=== PATIENT | male | born 1935 | race Caucasian/White ===

== ENCOUNTER 2021-12-07 11:07 | Observation (INO) | payer MEDICARE, OTHER ==
[~2021-12-07] VITALS: Ht 180.3 cm; Wt 70.0 kg
--- NOTE | 2021-12-07 18:00 | NUR ---
ADMISSION ASSESSMENT COMPLETE - PT RESTING IN BED WITH DAUGHTER AT BEDSIDE. PT ON 3l NC SP02 100%. DENIES SOB OR DIZZINESS. BM PRODUCED UPON ARRIVING TO FLOOR. PT AMBULATED TO BATHROOM WITH NC IN PLACE WITH 1 PERSON ASSIST. PT DENIES DINNER AT THIS TIME. CALL LIGHT IN HAND.
--- NOTE | 2021-12-07 18:27 | NUR ---
RN ROUNDING ON PT - ASLEEP IN BED, WAKES WITH VOICE AND TOUCH. PT TOLERATED ORAL KAYEXELATE WITHOUT DIFFICULTY. DENIES FURTHER NEEDS AT THIS TIME. CALL LIGHT IN REACH.
--- NOTE | 2021-12-07 19:44 | NUR ---
TELE#10 RHYTHM V BIGEMINY, DENIES CP. ON O2 2LNC, HAD JUST GOT UP TO BR, BACK TO BED, DENIES SOB WITH EXERTION. DR CARABALLO NOTIFIED OF ABOVE SX. NO ORDER AT THIS TIME
--- NOTE | 2021-12-07 19:57 | NUR ---
PT IN BED, DENIES CP. SOB OR LIGHTHEADNESS, TELE#[address], Svitlana HERNANDEZ. O2 CHRONIC 2LNC, SATS 100%, INDEPENDENT IN ROOM TO 1PA. PLEASANT AND COOP. ALERT AND ORIENTED. LFA PATENT
--- NOTE | 2021-12-07 23:16 | NUR ---
TELE#10, CONT ON VBIGEMINI RHTYTHM, DENIES CP OR SOB. TURNS AND REPOSITIONS SEFL IN BED, LAB HERE EARLIER TO DRAW K LEVEL. PT IN BED CALL STELLATH AT HANDSA REACH, O2 2LNC
--- NOTE | 2021-12-07 23:45 | NUR ---
IN TO ASSIST PT WITH TOILETING, SBA, BACK TO BED, ASSISTED PT WITH TV OFF, BED ALARM ACTIVE, WARM BLANKET PROVIDED, NO FURTHER NEEDS AT THIS TIME
--- NOTE | 2021-12-08 00:03 | NUR ---
DR CARABALLO REVIEWED PT LABS, DC'D TEL.
--- NOTE | 2021-12-08 00:11 | NUR ---
AWAKES EASILY, TELE DC'D PER DR MONTEZ ORDRS. K LEVELS RESULTS BACK 5.1. PT DENIES CP OR SOB.
--- NOTE | 2021-12-08 02:50 | NUR ---
PT CALLED FOR WARM BLANKETS, ASSISTED UP TO THE TOILET WITH WALKER, BACK TO BED, VS TAKEN
--- NOTE | 2021-12-08 02:53 | NUR ---
IN TO PROVIDE PT WARM BLANKET
--- NOTE | 2021-12-08 03:32 | NUR ---
PT UP TO BR, VOIDED, PASSED LARGE AMOUNT OF GAS, SMALL HARD BM , TOOK O2 OFF WHEN UP TO BR, DESATTED TO 82%, BACK ON 2LNC, WENT UP TO 92%. BACK TO BED, DENIES C/O CP OR SOB, TOLERATED WELL. 1PA/HOME FWW, COOPERATIVE, BED ALRM ON FALL PRECAUTIONS, LIQUIDS AT BEDSIDE, NO EMESIS.
--- NOTE | 2021-12-08 06:50 | NUR ---
IN TO GET LAST SET OF VITALS, PT UP TO THE TOILE, VOID AND BM, BACK TO BED, ICE WATER AND COFFEE PROVIDED
--- NOTE | 2021-12-08 06:55 | NUR ---
Pt awakes easily on 2L O2 chronic, Irregular rhythm, no c/o cp or sob. ambulated to br w minimum of assist and home fww. back to bed, tolerated well.
--- NOTE | 2021-12-08 08:25 | NUR ---
patient sitting up in the bed eating breakfast. the patient states he doesn't want to get to the chair. call light with in reach. no further needs at this time.
--- NOTE | 2021-12-08 10:11 | NUR ---
Patient awake in bed, no distress noted. Patient reports he slept well last night. No pain reported at this time. Pt remains on 2L oxygen per nc, respirations non labored. Family at bedside visiting with pt. No needs, personal supplies and call light within reach.
--- NOTE | 2021-12-08 11:14 | NUR ---
Patient up to restroom to void at this time. Patient tolerated ambulation well using home walker. Family remains at bedside visiting. No needs, personal supplies and call light within reach.
[2021-12-08] MEDS ORDERED: LOVASTATIN20 MG PO (13:00)
[2021-12-08] MEDS ORDERED: ASPIRIN81 MG PO (13:01)
[2021-12-08] MEDS ORDERED: AMILORIDE HCL5 MG PO (13:03)
[2021-12-08] MEDS ORDERED: POLYMYXIN B TOP (13:07)
[2021-12-08] MEDS ORDERED: BACITRACIN TOP (13:07)
[2021-12-08] MEDS ORDERED: MONTELUKAST SOD10 MG PO (13:08)
[2021-12-08] MEDS ORDERED: METOPROLOL TART25 MG PO (13:08)
[2021-12-08] MEDS ORDERED: OMEPRAZOLE40 MG PO (13:10)
[2021-12-08] MEDS ORDERED: BICALUTAMIDE50 MG PO (13:15)
[2021-12-08] MEDS ORDERED: DOXAZOSIN MESYLA2 MG PO (13:19)
[2021-12-08] MEDS ORDERED: LEVOTHYROXINE75 MCG PO (13:19)
[2021-12-08] MEDS ORDERED: MELOXICAM15 MG PO (13:20)
[2021-12-08] MEDS ORDERED: VITAMIN C500 M4 PO (13:22)
[2021-12-08] MEDS ORDERED: FIBER LAXATIVE625 MG PO (13:23)
[2021-12-08] MEDS ORDERED: IPRAT-ALBUT 0.5-3 ML INH (13:25)
[2021-12-08] MEDS ORDERED: FERROUS SULFAT325 M2 PO (13:26)
[2021-12-08] MEDS ORDERED: [UNRECOGNIZED DRUG - OTHER] PO (13:28)
[2021-12-08] MEDS ORDERED: MIRALAX17 GM PO (13:31)
[2021-12-08] MEDS ORDERED: VENTOLIN HFA18 GM INH (13:32)
[2021-12-08] MEDS ORDERED: IMODIUM A-D2 M2 PO (13:33)
[2021-12-08] MEDS ORDERED: MILK OF MA2400 MG/10 PO (13:35)
[2021-12-08] MEDS ORDERED: ULTRAM50 MG PO (13:36)
[2021-12-08] MEDS ORDERED: ONDANSETRON ODT4 MG PO (13:36)
[2021-12-08] MEDS ORDERED: ACETAMINOPHEN325 M1 PO (13:37)
[2021-12-08] MEDS ORDERED: SENNA8.6 MG PO (13:38)
[2021-12-08] MEDS ORDERED: TRIAMCINOLONE A15 G3 TOP (13:39)
--- NOTE | 2021-12-10 12:55 | EKG ---
[facility] [address] [place] [address] Signed Normal sinus rhythm Minimal voltage criteria for LVH, may be normal variant ( [place] product ) Anterior infarct , age undetermined Abnormal ECG No previous ECGs available Confirmed by YURI CARABALLO MD ([id number]) on 12/10/2021 12:54:59 PM Electronically Signed By: YURI CARABALLO MD 12/10/21 1255 PATIENT NAME: RADHA JEFFRIES Electrocardiogram DATE OF : 33 PHYSICIAN: YURI CARABALLO MD REPORT #: [id number] REPORT IS CONFIDENTIAL AND NOT TO BE RELEASED WITHOUT AUTHORIZATION
[2021-12-27] MEDS ORDERED: TRAZODONE HCL100 MG PO (13:12)
== END 2021-12-08 14:05 | disposition home or self-care (01) ==
LOC: ED 11:07 → MS 11:09
PROVIDERS: ADMIT Internal Medicine; ATTEND Internal Medicine
DX: E87.5 Hyperkalemia (principal); T50.2X5A Adverse effect of carbonic-anhydrase inhibitors, benzothiadiazides and other diuretics, initial encounter; D64.9 Anemia, unspecified; K52.9 Noninfective gastroenteritis and colitis, unspecified; I11.0 Hypertensive heart disease with heart failure; I50.32 Chronic diastolic (congestive) heart failure; C61 Malignant neoplasm of prostate; K59.09 Other constipation; E78.5 Hyperlipidemia, unspecified; E03.9 Hypothyroidism, unspecified; J96.11 Chronic respiratory failure with hypoxia; Z88.8 Allergy status to other drugs, medicaments and biological substances; Z95.1 Presence of aortocoronary bypass graft; Z79.01 Long term (current) use of anticoagulants; Z95.2 Presence of prosthetic heart valve; Z88.5 Allergy status to narcotic agent; Z20.822 Contact with and (suspected) exposure to COVID-19; M25.50 Pain in unspecified joint
CPT/HCPCS: 36415; 71045; 80053; 81001; 83880; 84132; 84484; 85025; 86850; 86900; 86901; 87502; 93005; 93010; 94640; 94760; 96374; 99285-25; C9803; G0378; J1940; U0003

== ENCOUNTER 2022-01-01 12:32 | Inpatient (IN) | payer MEDICARE, OTHER ==
[~2022-01-01] VITALS: Ht 180.3 cm; Wt 68.9 kg
[~2022-01-01 12:32] MED LIST: ACETAMINOPHEN325 M1 PO; AMILORIDE HCL5 MG PO; ASPIRIN81 MG PO; BACITRACIN TOP; BICALUTAMIDE50 MG PO; DOXAZOSIN MESYLA2 MG PO; FERROUS SULFAT325 M2 PO; FIBER LAXATIVE625 MG PO; IMODIUM A-D2 M2 PO; IPRAT-ALBUT 0.5-3 ML INH; LEVOTHYROXINE75 MCG PO; LOVASTATIN20 MG PO; MELOXICAM15 MG PO; METOPROLOL TART25 MG PO; MILK OF MA2400 MG/10 PO; MIRALAX17 GM PO; MONTELUKAST SOD10 MG PO; OMEPRAZOLE40 MG PO; ONDANSETRON ODT4 MG PO; POLYMYXIN B TOP; SENNA8.6 MG PO; TRAZODONE HCL100 MG PO; TRIAMCINOLONE A15 G3 TOP; ULTRAM50 MG PO; VENTOLIN HFA18 GM INH; VITAMIN C500 M4 PO; [UNRECOGNIZED DRUG - OTHER] PO
--- OUTSIDE RECORDS SUMMARY | 2022-01-01 12:40 | XMS ---
PreManage Notification: RADHA JEFFRIES Security Overnight Stocker Events No recent Security Events currently on file CRITERIA MET - [facility] - 2 Visits in 30 Days - [facility] - 3 Facilities in 90 Days CARE PROVIDERS Jenifer Brock Security Operations Specialist/Zone Maintenance Technician 09/11/2021-Current PHONE: [phone] Zeenat Murillo Nurse Practitioner: Family Current PRODUCT SUPPORT MANAGER PHONE: Unknown Wong has no Care Guidelines for this patient. E.D. VISIT COUNT (12 MO.) [address] [place] [address] TOTAL 4 NOTE: Visits indicate total known visits. ED/UCC VISIT TRACKING (12 MO.) 01/01/2022 12:33 [facility] [place] TYPE: Emergency COMPLAINT: - HEART PROBLEM, DIFFICULTY BREATHING 12/30/2021 17:52 [facility] [place] TYPE: Emergency DIAGNOSES: - Generalized edema - Generalized abdominal pain - Other ascites - ABD PAIN 12/23/2021 11:30 [facility] TYPE: Emergency DIAGNOSES: - Abdominal Pain - Generalized abdominal pain - Residual hemorrhoidal skin tags 12/07/2021 11:08 [facility] TYPE: Emergency COMPLAINT: - MULTIPLE COMPLAINTS INPATIENT VISIT TRACKING (12 MO.) 12/07/2021 11:09 [facility] [place] TYPE: Observation COMPLAINT: - HYPERKALEMIA DIAGNOSES: - Allergy status to other drugs, medicaments and biological substances - Allergy status to narcotic agent - Pain in unspecified joint - Hyperkalemia - Chronic diastolic (congestive) heart failure - Weakness - Malignant neoplasm of prostate - Anemia, unspecified - Hypothyroidism, unspecified - Noninfective gastroenteritis and colitis, unspecified - Other constipation - Hyperlipidemia, unspecified - Presence of prosthetic heart valve - Contact with and (suspected) exposure to COVID-19 - Hypertensive heart disease with heart failure - Adverse effect of carbonic-anhydrase inhibitors, benzothiadiazides and other diuretics, initial encounter - [facility] (current) use of anticoagulants - Chronic respiratory failure with hypoxia - Presence of aortocoronary bypass graft [email or web address]
[2022-01-01] MEDS ORDERED: TORSEMIDE20 MG PO (13:11)
--- NOTE | 2022-01-01 16:12 | NUR ---
PT TO FLOOR WITH ARNOLD BULLOCK. 2 DTRS ALSO WITH HIM. PT ASSISTED TO BED ON DRAW SHEET. PT HAS WARM PACK IN PLACE FOR CHRONIC NECK PAIN. WEIGHED ON BED AND DTR STATES HE NORMALLY WEIGHS APPROX 20LBS LESS. KATIA WITH ECHO IN ROOM. ADMINISTERED LASIX.
--- NOTE | 2022-01-01 16:41 | NUR ---
ASSISTED PT TO RESTROOM WITH FWW. DID WELL BUT SOB WITH AMBULATION. PT THEN SPOKE ON PHONE WITH SON. ADMINISTERED TYLENOL FOR NECK PAIN THAT HE RATES 9/10.
--- NOTE | 2022-01-01 17:59 | NUR ---
Spoke with Rn, Melina, from [facility]. Pt has been living there with his for the last year and a half. Pt uses a walker and 02 at 2 L. In the last 2 weeks he has required a wc. Pt has been declining over the last few weeks and is sob. He has not been able to lie down. He assists his at the [facility]. Daughters are involved and assist pt and . Per Melina pt may return when he is at baseline [facility]. Plan for pt to return to [facility] when medically cleared.
--- NOTE | 2022-01-01 20:40 | EKG ---
[facility] [address] [facility] [place] [address] Signed Sinus rhythm with premature supraventricular complexes Rightward axis Borderline ECG No previous ECGs available Confirmed by YURI CARABALLO MD ([id number]) on 01/01/2022 8:40:36 PM Electronically Signed By: YURI CARABALLO MD 01/01/222039 PATIENT NAME: RADHA JEFFRIES Electrocardiogram DATE OF : 33 PHYSICIAN: YURI CARABALLO MD REPORT #: [id number] REPORT IS CONFIDENTIAL AND NOT TO BE RELEASED WITHOUT AUTHORIZATION
--- NOTE | 2022-01-01 21:28 | NUR ---
pt alert and oriented. on 2L NC. lungs with crackles coarser onthe L than Right, no cough. sl Lhand, patent, received Lasix IV. pt coop with assessment. trace of edema to ankles. tolerating flui restriction at this time. teaching reinforced. coop. using urinal, sob with exertion noted. call light at handsa reach. Bed alarm on
--- NOTE | 2022-01-01 23:25 | NUR ---
PT BEING REPOSITINED IN BED BY MOTORBIKE COURIER, O2 2L NC, C/O UNABLE TO BREATH, REPOSITIONED IN BED, SPOT SAT CHECKS 90-92% LUNGS WITH CRACKLES AT LEFT BASE. NO COUGH NOTED AT THIST NIKA, ALERT AND ORIENTED. RT TO BE NOTIFIED FOR TX
--- NOTE | 2022-01-01 23:49 | NUR ---
DR CARABALLO CALLED THIS UNIT VIA PHONE, 'KEEP PTS HOB ELEVATED TO 45o TO HELP WITH BREATHING IF NOT WORKING THEN DO VAPOTHER MY CONVERSATION WITH RT". HOB ELEVATED TO 45o, PROCEDURE EXPLAINED TO PT, ITS STILL NOT GOING TO HELP ME BREATH BETTER. SINCE MY HEAD IS UP LIKE IN A CHAIR, WHY DONT YOU LOWER MY LEGS FLAT TOO", EXPLAINED TO HIM ABOUT KEEPING LEGS ELEVATED TOO. SPOT CHECKS 92%, LUNGS NO CHANGES FROM EARLIER.
--- NOTE | 2022-01-02 00:28 | NUR ---
pT ON 2LNC, SATS 98%, LUNGS W CRACKLES T/O. HOB ELEVATED TO 45o, legs elevated, "i still think im sob, not as bed as earlier but still a little". will notify RT
--- NOTE | 2022-01-02 01:01 | NUR ---
resting, O2 2LNC, hob 45o, cpox on 97% P60, R 16, no s/sx distress at this time, eyes closed, bed alarm on
--- NOTE | 2022-01-02 02:16 | NUR ---
uses call light, on 2L O2 with humidifier, HOB elevated to 45o, sats 100%, resp 18, lungs with crackles at bases, no further c/o Inability to breathe. SOB noted with exertion when he was using urinal and moving in bed, sats 97% and resp 22 at that time. recuperates easily. repositioned in bed, sl patent.
--- NOTE | 2022-01-02 03:35 | NUR ---
spot check o2 sats 2LNC 98%, resp 16, fixated on and continues to ask for wate, pt instructed on fluid restriction, pt unable to comprehend fluid restriction. oral care swabs at bedside. reassured, cont to reinforce fluid restriction
--- NOTE | 2022-01-02 04:04 | NUR ---
turned light, continue to be unable to process information r/t fluid restriction, reoriented. not satisfied, cont to reinofrce teaching r/t fluids restrictions
--- NOTE | 2022-01-02 05:27 | NUR ---
PT ON 2LNC, LUNGS CRACKLES T/O AT BEGINING OF SHIFT, DRY COUGH NOTED OFF AND ON. PT AWAKE MOS OF THIS SHIFT, PLEASANT, FORGETFUL AND COOPERATIVE. uP TO BR AT BEGINIG OF SHIFT, VOIDED, BACK TO BEDN INCREASED SOB WITH EXERTION NOTED, O2 WAS INCREASED TO 4L FOR A FEW MINUTES, BACK TO 2L. RECEIVED LASIX IV, EFFECTIVE. VOIDING QS, USES URINAL AND HAS BEEN INCONTINENT OF URINE. ATTENDS IN PLACE. PT C/O UNABLE TO BREATHE AT BEGINING OF SHIFT. SATS 90-91%, RESP 24, NEB TX DONE. RT NOTIFIED AND AFTER DOING HIS ASSESSMENT HE CALLED DR CARABALLO, NEW ORDERS FOR KEEPING PT UP IN 45o angle and if not improving start vapotherm as per RT instructions. pt tolerating being sitting up in 45o angle, lungs improved, STILL CRACKLES AT BASES, NO COUGH. SATS 96-100% SEVERAL TIMES AND SPOT CHECKS DONE OFTEN.PT ON 1600 FLUIDS RESTRICTION. PT HAVING A HARD TIME REMEMBERING AND GOT UPSET SEVERAL TIMES WHEN INSTRUCTED ON 1600CC FLUID RESTRICTION AND REASONING. UNABLE TO COMPREHEND CONT TO REQUIRE FREQUENT TEACHING.. BED ALARM ON, COANT TO REINFORCE FALL/O2 PRECAUTIONS BED ALARM ONWILL DO DAILY STANDING WEIGHT. S
--- NOTE | 2022-01-02 07:34 | NUR ---
REPORT RECEIVED FROM NIGHT RN - RESTING IN BED AWAKE, REQUESTING WATER TO DRINK, UNCOMFORTABLE WITH FLUID RESTRICTION. EDUCATION REINFORCED ON CHF/FLUIDS. CALL LIGHT IN REACH.
[2022-01-02] MEDS ORDERED: METOCLOPRAMIDE H5 MG PO (07:35)
[2022-01-02] MEDS ORDERED: MEGESTROL400 MG/10 PO (07:36)
[2022-01-02] MEDS ORDERED: DOXAZOSIN MESYLA2 MG PO (07:36)
[2022-01-02] MEDS ORDERED: MELOXICAM15 MG PO (07:37)
[2022-01-02] MEDS ORDERED: AMILORIDE HCL5 MG PO (07:38)
--- NOTE | 2022-01-02 08:49 | NUR ---
RN IN ROOM TO ADMINISTER SCHEDULED MEDICATIONS - FAMILY IN ROOM VISITING. PT UP TO CHAIR FOR BREAKFAST. SP02 STABLE ON 2L VIA NC. PT STATES SOB HAS IMPROVED, STILL NOTED DYSPNEA ON EXCERTION USING URINAL OR TRANSFERING TO CHAIR.
--- NOTE | 2022-01-02 09:23 | NUR ---
RN IN ROOM TO ASSESS PT - PT ASSISTED BACK TO CHAIR FROM BATHROOM, DYSPNEA WITH EXCERTION MODERATE/SEVERE - RATE 30 WITH BELLY BREATHING, 2L NC IN PLACE, ENCOURAGE PT TO TAKE BREATH THROUGH NOSE WHEN RECOVERING. DENIES DIZZINESS WITH THIS. FAMILY STILL AT BEDSIDE. PT DENIES FURTHER NEEDS AT THIS TIME.
[2022-01-02] MEDS ORDERED: DICYCLOMINE HCL10 MG PO (09:55)
[2022-01-02] MEDS ORDERED: MIRALAX119 GM PO (09:59)
[2022-01-02] MEDS ORDERED: PEPTO-BISM262 MG/15 PO (10:00)
[2022-01-02] MEDS ORDERED: PREPARATION H1 EAC3 PR (10:02)
--- NOTE | 2022-01-02 11:13 | NUR ---
RN ROUNDING ON PT - PT RESTING IN BED WITH HOB 45 DEGREES. IV SITE WNL, TOLERATES IV LASIX WITHOUT DIFFICULTY. FAMILY PROVIDED WATER TO DRINK. OT IN ROOM WORKING WITH PT. WARM BLANKETS PROVIDED.
--- NOTE | 2022-01-02 12:21 | NUR ---
RN ROUNDING ON PT - ASSISTED UP IN BED AND PLACED IN CHAIR POSISTION TO ASSIST FEELING OF SOB. SPO2 STABLE ON 2L DESPITE FEELING SOB. LUNCH TRAY PROVIDED, DENIES FURTHER NEEDS AT THIS TIME. CALL LIGHT AND FAMILY IN ROOM.
--- NOTE | 2022-01-02 12:59 | NUR ---
PT USES CALL LIGHT TO REQUEST HELP REPOSISTIONING - PT C/O SOB. RATE INCREASING FROM PREVIOUS ASSESSMENTS, SP02 >94% ON 2l. CRACKLES THROUGHOUT NOTED IN LUNG SOUNDS, WORSENING FROM 4 HOURS AGO. SCHEDULED NEB TX COMPLETED EARLIER. PT PLACED IN TRIPOD POSITION WITH BED SIDE TABLE, STATES COMFORTABLE. FAMILY AND CALL LIGHT IN REACH. CURTAIN TO NURSES STATION OPEN.
--- NOTE | 2022-01-02 13:40 | NUR ---
PRN NEB TX PROVIDED FOR SOB. SP02 CONTINUES TO REMAIN STABLE ON 2L. REPOSISTIONED WELL. WILL CONTINUE TO ASSESS.
--- NOTE | 2022-01-02 14:13 | NUR ---
PT REPOSISTIONED TO CHAIR TO ASSIST WITH SOB - NEB TX HELPED SLIGHTLY. CONTINUES TO HAVE STABLE SPO2 WITH 2L. CRACKLES THROUGHOUT WITH 2+ BLE EDEMA. FAMILY AT BEDSIDE. SPOKE WITH DAUGHTER ON PHONE FOR UPDATE. FAMILY ANXIOUS FOR MD TO ROUND.
--- NOTE | 2022-01-02 15:07 | NUR ---
RN IN ROOM TO REPOSISTION PT AND ADMINISTER IV LASIX. PT CONTINUES TO C/O SOB, IMPROVES WITH UPRIGHT POSISTION HOWEVER PT IS FREQUENTLY WANTING TO CHANGE POSISTIONS. FAMILY AT BEDSIDE. CALL LIGHT IN REACH.
--- NOTE | 2022-01-02 16:40 | NUR ---
RN IN ROOM TO ROUND WITH MD - PT STATES UNDERSTANDING ON PLAN OF CARE TO CONTINUE DIURESIS , WELL FAMILY. PT REPOSISTIONED IN BED WITH HOB >45. REMAINS ON 2L NC. PT ABLE TO USE URINAL WITH ASSISTANCE.
--- NOTE | 2022-01-02 16:58 | NUR ---
Spoke with pt. States he might be slightly better. Denies needs.
--- NOTE | 2022-01-02 18:20 | NUR ---
RN IN ROOM TO ADMINISTER SCHEDULED MEDICATIONS - PT BACK TO BED FROM BATHROOM USING FWW. SMALL BM PRODUCED WITH UNMEASURED URINE VOID. STEADY ON FEET, MILD WEAKNESS FROM BASELINE, DYSPNIC WITH EXCERTION. PT SAT IN CHAIR POSISTION IN BED FOR OPTIMAL BREATHING EFFORT. EDUCATION CONTINUED TO BE REINFOCED ABOUT LAYING DOWN. 2L NC IN PLACE. IV SITE TOLERATING MAG INFUSION WITH SOME PAIN, IV PATENT AND VERIFIED WITH CARE TRANSPORT NURSE - RATE SLOWED AND WARM PACK APPLIED. CALL LIGHT AND TABLE WITHIN REACH.
--- NOTE | 2022-01-02 20:02 | NUR ---
Pt in bed, hob elevated to 45o, O2 2LNC w humidifier. crackly lung sounds, pt helped reposition in bed, sats 97% at that time. tacheipneic but did not desatted when repositioning. cooperative, RT in room to do tx. mag rider completed
--- NOTE | 2022-01-02 20:40 | NUR ---
pt voided uses urinal, took meds and Melatonin given per insomnia and Tylenol per neck and back pain. O2 2 LNC. hob elevated to 45o, rt gave neb tx a few minutes ago
--- NOTE | 2022-01-02 23:46 | NUR ---
alarm going off, sitting edge of bed, voided clear urine. repositioned back in to bed. "that sleeping pill is not working" staed, warm blanket given on request. O2 2LNC, bed alrm on.
--- NOTE | 2022-01-03 00:20 | NUR ---
IN TO ASSIST PT UP TO THE TOILET, SBA FWW, VOID AND BM, BACK TO BED BED ALARM IN PLACE
--- NOTE | 2022-01-03 00:58 | NUR ---
hob elevated on 2LNC, eyes closed, no distress, bed alarm on. cont on fluid restriction
--- NOTE | 2022-01-03 02:12 | NUR ---
using call light, coop with assessment. awake, O2 2LNC, lung w crackles t/o slight sob with exertion noted when repositioned in bed. using urinal, no c/o pain or concerns about fluid restriction.
--- NOTE | 2022-01-03 03:10 | NUR ---
IN TO RN TO BOOST PT AND HOB PLACED AT 45 ANGLE, PT FEELS BETTER NOW
--- NOTE | 2022-01-03 03:20 | NUR ---
PT CALLED, PT FEELS LIKE HIS REAR IS SORE, PILLOW ADDED TO THE RIGHT HIP, ENCURAGED PT TO TRY THIS AND CALL BACK IF NOT WORKING, PT ARGREEABLE TO PLACE, BED ALARM REMAINS IN PLACE
--- NOTE | 2022-01-03 03:45 | NUR ---
IN TO ASSIST PT TO THE TOILET, 1PA FWW, VOID AND BM, D.WT TAKEN AT THIS TIME, BACK TO BED, NO FURTHER NEEDS AT THIS TIME
--- NOTE | 2022-01-03 04:03 | NUR ---
UP TO BR 1PA/FWW A FEW MINUTES AGO, UNSTEADY ONCE HE GOT TO TOILET, BACK TO BED. DAILY WEIGHT STANDING SCALE 70.4KG. BACK TO BED, TOLERATED MUCH BETTER,O2 2LNC IN PLACE, HOB 45o, crackles present, but tolerating walking much better
--- NOTE | 2022-01-03 04:45 | NUR ---
PT AWAKE, IN TO GET VITALS, NO FURTHER NEEDS AT THIS TIME
--- NOTE | 2022-01-03 04:52 | NUR ---
Pt on 2L NC. lungs with crackles, no cough today. sob with exertion, ambulated to br, unsteady 1pa/fww. was medicated x1 with Tylenol per back and neck pain effective. medicated with Melatonin per insomnia, not effective. Pt has not slept. c/o SOB at times, repositioned back to HOB elevation 45o as per orders and feels much relieved, no changes to lungs from earlier on shift. Irritable off and on over fluid restriction. daily stand weight 70.4KG. follows instructions. repositioned many times and voiding small amount using urinal many times. uses call light.
--- NOTE | 2022-01-03 05:20 | NUR ---
DROWSY AWAKES EASILY, MEDICATED WITH TYLENOL 500 C/O BACK AND NECK PAIN, REPOSITIONED IN BED, [address] LAB IN ROOM
--- NOTE | 2022-01-03 05:52 | NUR ---
awake, uses call light, warm blanket given on request. c/o unable to breathe. sats 90% on 2LNC, scrunched down in bed, repositioned. HOB elevated to 45o sats up to 96%, lungs w no changes from earlier assessment, crackles t/o RT notified of pt wanting a neb tx.
--- NOTE | 2022-01-03 07:43 | NUR ---
REPORT RECEIVED FROM NIGHT RN - PT AWAKE IN BED WITH PRODUCTIVE COUGH, REPOSISTIONED HIGHER IN BED, PT STATES HIS "BOTTOM IS GETTING SORE" - VISUALLY INSPECTED AND NO BREAKDOWN NOTED. PT HAS CALL LIGHT IN HAND, NC IN PLACE.
--- NOTE | 2022-01-03 09:49 | NUR ---
RN IN ROOM TO ASSESS PT - PT ANXIOUS THIS AM AND USING CALL LIGHT FREQUENTLY TO REPORT SOB. PT REPOSISTIONED INTO CHAIR AND FLOATED ON PILLOWS TO RELEIVE PRESSURE PT COMPLAINS OF ON COCCYX. CRACKLES THROUGHOUT LUNG ROUSE, SP02 STABLE ON 2L NC. IV LASIX AM DOSE GIVEN. PT NOTED TO HAVE IRREGULAR HR THIS AM - BOTH BY AUSCULTATION AND PALPATION RADIALLY. HOUSE REGISTRY RN NOTIFIED TO REPORT AT AM MEETING. CHART REVIEWED AND NO HX OF AFIB OR IRREGULAR RATE NOTED. BM THIS AM, VOIDING QS. CALL LIGHT IN LAP, WARM BLANKETS PROVIDED.
--- NOTE | 2022-01-03 10:40 | NUR ---
lengthy conversation had with daughter beckie (poa). States desire to update dnr polst form, case managment to consult with family. Disease process education continued to be reinforced with family regarding symptoms and prognosis. Beckie states understanding.
--- NOTE | 2022-01-03 11:16 | NUR ---
RN ROUNDING ON PT - RESTING IN CHAIR. PT EXPRESSES ANXIETY R/T SOB AND THE DYING. PT STATES HE IS READY TO BUT DOES NOT WANT TO LEAVE HIS . COMFORT AND THERAPEUTIC CONVERSATION HAD [facility] PT - WILL ADDRESS ANXIETY WITH MD. PT STATES HE IS WILLING TO TRY "ANYTHING THAT HELPS".
--- NOTE | 2022-01-03 11:57 | NUR ---
PT USES CALL LIGHT TO ASK FOR ASSISTANCE WITH URINAL. PT CONTINUES TO REST IN CHAIR WITH PILLOWS ON EACH SIDE. PTS SOB BEST WITH UPRIGHT POSISTION. CALL LIGHT IN REACH.
--- NOTE | 2022-01-03 12:47 | NUR ---
RN ROUNDING ON PT - PT FINISHED WITH LUNCH TRAY, 50% CONSUMED. PT APPEARS TO BE MORE COMFORTABLE WITH WORK OF BREATHING SITTING IN CHAIR. WARM BLANKETS PROVIDED.
--- NOTE | 2022-01-03 15:11 | NUR ---
Spoke with Jeff. He denies needs. Was not feeling well earlier. Better now. Plan remains for pt to return to [facility] on discharge.
--- NOTE | 2022-01-03 15:37 | NUR ---
RN ROUNDING ON PT - REQUESTS WARM BLANKETS AND THERMOSTAT TURNED UP, PROVIDED. 2L NC IN PLACE. PT DENIES WORSENING SOB, NOT SIGNIFICANTLY IMPROVED EITHER. CALL LIGHT IN LAP.
--- NOTE | 2022-01-03 16:17 | NUR ---
PTS MANFREDTERS IN ROOM TO VISIT.
--- NOTE | 2022-01-03 19:30 | NUR ---
IN TO CHECK ON PT, PT NEEDING TO SIT UP AT EOB, FEELING SOB, O2 WNL @ 92% PT WOULD LIKE TO REMAIN SITING UP, WILL CALL TO GET UP OR LAY DOWN
--- NOTE | 2022-01-03 21:00 | NUR ---
PATIENT UP TO RECLINER, STATES "MY BUNS ARE ON FIRE" APPLIED BARRIER CREAM TO AREA, PATIENT REPORTED RELIEF. PATIENT REQUESTING SLEEPING PILL, ADMINISTERED 25MG OF TRAZADONE PO. CALL LIGHT WITHIN REACH NO OTHER NEEDS.
--- NOTE | 2022-01-03 23:00 | NUR ---
PATIENT UP TO BATHROOM, VOIDED LARGE BM. PROVIDED PATIENT WITH PREPERATION H CREAM, PATIENT SELF APPLIED. PATIENT BACK TO BED, STEADY ON FEET WITH WALKER. ADMINISTERED 25 MG OF TRAZADONE, PER MAR AM ABLE TO ADMINISTER UP TO 50 MG. PATIENT LAYING WITH HOB ELEVATED 45 DEGREES. CALL LIGHT WITHIN REACH.
--- NOTE | 2022-01-03 23:00 | NUR ---
PT MOVED BACK TO BED, ENCURAGED TO LAY ON SIDE TO HELP WITH SORE REAR, OUT TO BRING PT A WARM BLANKET, PT NOW NEEDS TO GET UP AGAIN BUT TO THE TOILET, PT TRYING TO PASS BM, WILL CALL WHEN READY
--- NOTE | 2022-01-03 23:20 | NUR ---
PT IS BACK TO BED, VOID AND BM PASSED, NO FURTHER NEEDS AT THIS TIME
--- NOTE | 2022-01-04 03:22 | NUR ---
PATIENT APPEARS TO BE RESTING WITH EYES CLOSED. RR 20, EVEN AND REGULAR CHEST RISE.
--- NOTE | 2022-01-04 03:24 | NUR ---
PATIENT APPEARS TO BE RESTING WITH EYES CLOSED, APPEARS CALM.
--- NOTE | 2022-01-04 08:46 | NUR ---
PATIENT UP IN CHAIR, ALL AM CARES COMPLETED. NO OTHER NEEDS AT THIS TIME, CALL LIGHT WITHIN REACH.
--- NOTE | 2022-01-04 09:20 | NUR ---
RN IN ROOM TO ASSESS PT AND ADMINISTER SCHEDULED MEDICATIONS. PT AWAKE AND UP IN CHAIR FOR BREAKFAST. ASSESSMENT UNCHANGED FROM PREVIOUS SHIFT, SLIGHT IMPROVEMENT IN BLE EDEMA THIS AM. REMAINS ON 2L 02 NC. PT REPORTS PAIN IN "BUTT" STATES HEMRHOID CREAM WAS APPLIED, FLOATED ON PILLOWS IN CHAIR. PT WORKED WITH PT THIS AM WITH IMPROVMENT.
--- NOTE | 2022-01-04 10:00 | NUR ---
PATIENT BACK IN CHAIR AFTER USING RESTROOM. VITALS ARACELY/O'S COMPLETED. NO OTHER NEEDS AT THIS TIME, CALL LIGHT WITHIN REACH.
--- NOTE | 2022-01-04 10:45 | NUR ---
RN IN ROOM TO ROUND ON PT - RESTING IN CHAIR AND DENIES NEEDS AT THIS TIME. LONG DISCUSSION AND EDUCATION PROVIDED TO FAMILY REGARDING CHF DISEASE PROCESS. FAMILY HAS QUESTIONS REGARDING HIS CURRENT LIVING SITUATION AT ASSISTED FACILITY VS SNF, REFERED TO CASE MANAGEMENT FOR FURTHER HELP.
--- NOTE | 2022-01-04 12:17 | NUR ---
RN ROUNDING ON PT - PT UP IN CHAIR VISITING WITH HIS . NC IN PLACE, NO DISTRESS NOTED. CALL LIGHT AND TABLE IN REACH.
[2022-01-04] MEDS ORDERED: TORSEMIDE20 MG PO (13:30)
--- NOTE | 2022-01-04 14:00 | NUR ---
RN PROVIDED EXTENSIVE EDUCATION TO FAMILY AND PT REGARDING LOW SODIUM DIET AND FLUID RESTRICTION R/T CHF EXACERBATION PREVENTION. EDUCATION PRINTED AND PROVIDED TO FAMILY AND FACILITY. CONVERSATION HAD WITH FAMILY AND CRYSTAL FROM [facility] REGARDING PTS DISCHARGE PLAN. PT EXPRESSES DESIRE TO GO HOME VERY BOLDLY AND OF SOUND MIND AFTER MD ROUNDS AND STATES HE IS MEDICALLY READY AT THIS TIME TO DC. FACILITY NOTIFIES FAMILY THAT THEY CAN NOT ACCEPT DISCHARGES ON THE WEEKEND BECAUSE OF LACK OF NURSING STAFF AND THAT HE WOULD BE A NEW ADMIT TO THEM DESPITE HIM AND HIS BEING RESIDENTS FOR AWHILE. FAMILY VERY UPSET BY THIS ASKS FOR PT TO BE DISCHARGED ACCORDINGLY TO MD PLAN - FAMILY STATES THAT THEY DO NOT HAVE A SAFE PLACE FOR PT AND TO STAY UNTIL THURSDAY WHEN FACILITY STATES HE CAN RETURN. FAMILY NOTIFIED AND DISCUSSION HAD WITH ELEMENTARY EDUCATION TUTOR AND HOUSE SUP THAT PT IS WELCOME TO STAY IN HOSPITAL HE WOULD NOT BE DISCHARGED TO AN UNSAFE SITUATION, PT DENIES WANTING TO DO THIS WITH DAUGHTER AND RN IN PRESENCE WHILE HE EXPRESSES HIS DESIRE TO GO "HOME". DISCHARGE PACKET FAXED TO FACILITY AFTER HOUSE SUP CONFIRMS FACILITY IS ACCEPTING PATIENT BACK TODAY. COPIES AND FAX APPROVAL IN CHART.
--- NOTE | 2022-01-04 14:19 | NUR ---
PATIENT IN CHAIR VISITING WITH NURSE AND FAMILY AFTER SHOWERING, VOIDING, AND GETTING DRESSED IN CIVILIAN CLOTHES. VITALS AND I/O'S COMPLETED, PATIENT READY FOR DISCHARGE. NO OTHER NEEDS AT THIS TIME. CALL LIGHT WITHIN REACH.
--- NOTE | 2022-01-04 15:40 | NUR ---
AFTER MULTIPLE PHONE CALLS FROM NURSING STAFF REPORTING THAT PT WAS DISCHARGED, FAMILY DEMANDING TO GO HOME, AND [facility] STATING THEY COULD NOT TAKE HIM BACK ON THE WEEKEND. THEN A PHONE CALL REPORTING THAT THEY WOULD TAKE HIM, ALTHOUGH THEY WERE FEELING PUSHED TO DO SO. PLACED CALL TO CASE MANAGMENT AND RECIEVED PHONE CALL BACK FROM [facility]. VASU REPORTS LONG THE FACILITY STATES THEY ARE ACCEPTING HIM BACK AND THAT HE IS DISCHARGED APPROPRIATELY, THEN PT CAN GO HOME. THIS RN CALLED TO [facility] AND SPOKE WITH RNALMA, SHE STATES THAT SHE WILL BE GOING IN [facility] TO DO THE ADMISSION ASSESSMENT AND PT CAN RETURN BACK HOME. FAMILY HAPPY WITH THIS OUTCOME.
== END 2022-01-04 16:40 | disposition home or self-care (01) | DRG 291 ==
LOC: ED 12:32 → MS 14:59
PROVIDERS: ADMIT Internal Medicine; ATTEND Internal Medicine
DX: I11.0 Hypertensive heart disease with heart failure (principal); I50.33 Acute on chronic diastolic (congestive) heart failure; E87.1 Hypo-osmolality and hyponatremia; J96.11 Chronic respiratory failure with hypoxia; E78.00 Pure hypercholesterolemia, unspecified; K21.9 Gastro-esophageal reflux disease without esophagitis; E03.9 Hypothyroidism, unspecified; D64.9 Anemia, unspecified; Z66 Do not resuscitate; G47.00 Insomnia, unspecified; F41.8 Other specified anxiety disorders; J98.4 Other disorders of lung; I25.10 Atherosclerotic heart disease of native coronary artery without angina pectoris; K59.09 Other constipation; Z20.822 Contact with and (suspected) exposure to COVID-19; Z85.46 Personal history of malignant neoplasm of prostate; Z95.4 Presence of other heart-valve replacement; Z88.8 Allergy status to other drugs, medicaments and biological substances; Z88.5 Allergy status to narcotic agent; Z79.82 Long term (current) use of aspirin; Z79.899 Other long term (current) drug therapy; Z79.51 Long term (current) use of inhaled steroids; Z79.2 Long term (current) use of antibiotics; Z79.891 Long term (current) use of opiate analgesic; Z95.1 Presence of aortocoronary bypass graft
CPT/HCPCS: 36415; 71045; 80048; 80053; 83735; 83880; 84484; 85025; 87502; 93005; 93010; 93306; 94640; 94667; 94668; 94760; 97162; 97166; 99285-25; A9270; J1940; J3475; U0003